=== PATIENT | female | born 1945 | race Caucasian/White ===

== ENCOUNTER 2016-10-05 10:09 | Emergency (ER) | payer MEDICARE, OTHER ==
[~2016-10-05] VITALS: Ht 157.5 cm; Wt 78.1 kg
[~2016-10-05 10:09] MED LIST: ADV25050 INH; ALBU8.5H3 INH; BENA20TA65 PO; HYD25 PO; LEVO500T10 PO; PRED20 PO
[2016-10-05 10:11] VITALS: Ht 157.5 cm; Wt 78.1 kg
[2016-10-05] MEDS ORDERED: ALBUTEROL 0.5% (NEB) 2.5 MG/0.5 ML AMP HHN STA (11:40)
[2016-10-05] MEDS ORDERED: predniSONE 20 MG TAB PO ONE (12:00)
--- NOTE | 2016-10-05 12:45 | RADRPT ---
PROCEDURE: XR Chest. CLINICAL INDICATION: Shortness of breath TECHNIQUE: AP portable chest COMPARISON: 11/19/2015 FINDINGS: The cardiomediastinal silhouette is within normal limits of size ..The lungs are clear without pleur al effusion or focal consolidation. No pneumothorax. The osseous structures and soft tissues are unr emarkable. IMPRESSION: 1. No evidence for active cardiopulmonary disease. RPTAT:AAJJ Yonatan Zuñiga Physician Date Time Electronically viewed and signed by Yonatan Zuñiga Physician on 10/05/2016 12:45 MATT/
[2016-10-05] MEDS ORDERED: PRED20TA PO (12:57)
[2016-10-05] MEDS ORDERED: HYD25 PO (12:57)
[2016-10-05] MEDS ORDERED: ADV25050 INHALATION (12:57)
[2016-10-05] MEDS ORDERED: BENA20TA48 PO (12:57)
[2016-10-05] MEDS ORDERED: ALBU18HF INHALATION (12:57)
[2016-10-05] MEDS ORDERED: FLUT9.9S NASAL (12:58)
--- NOTE | 2016-10-05 13:02 | ERD ---
ER Documentation Chief Complaint Date/Time DATE: 10/05/16 TIME: 13:01 Chief Complaint FLU X 2 MOS HPI 71-year-old female presents with cough and nasal congestion for last 2 months. She has a history of asthma. She denies fevers. She has no history of present sputum. Denies chest pain, vomiting, abdominal pain. She is requesting refills on her medications for hypertension as well for ROS All systems reviewed and are negative except as per history of present illness. Medications Home Meds Active Scripts Fluticasone Propionate (Flonase Allergy Relief) 9.9 Ml [place].susp, 1 SPRAY NASAL DAILY, #1 BOTTLE TO EACH NOSTRIL Prov:MARLINE PETTY MD 10/05/16 Salmeterol Xinaf/Fluticasone* (Advair*) 250-50 Diskus Inhaler, 1 INH INHALATION BID, #1 INHALER Prov:MARLINE PETTY MD 10/05/16 Albuterol Sulfate* (Ventolin HFA*) 18 Gm Hfa.aer.ad, 2 PUFF INHALATION Q4H, #1 INHALER Prov:MARLINE PETTY MD 10/05/16 Benazepril Hcl* (Benazepril Hcl*) 20 Mg Tablet, 20 MG PO DAILY, #30 TAB Prov:MARLINE PETTY MD 10/05/16 Hydrochlorothiazide* (Hydrochlorothiazide*) 25 Mg Tab, 25 MG PO DAILY, #30 TAB Prov:MARLINE PETTY MD 10/05/16 Prednisone* (Prednisone*) 20 Mg Tab, 40 MG PO DAILY for 4 Days, TAB Start October 06, 2016 Prov:MARLINE PETTY MD 10/05/16 Albuterol Sulfate* (Proair HFA*) 8.5 Gm Hfa.aer.ad, 2 PUFF INH Q4H Y for WHEEZING AND SOB for 30 Days, INHALER 4 Refills Prov:JEN TONY S. 11/21/15 Prednisone (Prednisone) 20 Mg Tab, 60 MG PO DAILY for 2 Days, TAB Prov:JEN TONY S. 11/21/15 Prednisone (Prednisone) 20 Mg Tab, 40 MG PO DAILY for 2 Days, TAB Prov:JEN TONY S. 11/21/15 Prednisone (Prednisone) 20 Mg Tab, 20 MG PO DAILY for 2 Days, TAB Prov:RASTEPHAN FIGUEROAEEP S. 11/21/15 Levofloxacin* (Levofloxacin*) 500 Mg Tablet, 500 MG PO DAILY for 5 Days, TAB Prov:STEPHAN TONYEEP S. 11/21/15 Salmeterol Xinaf/Fluticasone* (Advair*) 1 Inh Inha, 1 INH INH Q12 for 30 Days, 2 Refills Prov:STEPHAN TONYEEP S. 11/21/15 Benazepril Hcl* (Lotensin*) 20 Mg Tab, 20 MG PO DAILY for 30 Days, TAB 3 Refills Prov:STEPHAN TONYEEP S. 11/21/15 Hydrochlorothiazide* (Hydrochlorothiazide*) 25 Mg Tab, 25 MG PO DAILY, #30 TAB 3 Refills Prov:STEPHAN TONYEEP S. 11/21/15 Allergies Allergies: Coded Allergies: No Known Allergy (Unverified , 11/19/15) PMhx/Soc History of Surgery: Yes (pls see EMR) Anesthesia Reaction: No Hx Neurological Disorder: No Hx Respiratory Disorders: Yes (asthma) Hx Cardiac Disorders: Yes (hypertension) Hx Psychiatric Problems: No Hx Miscellaneous Medical Probl: Yes (pls see EMR) Hx Alcohol Use: No Hx Substance Use: No Hx Tobacco Use: No Physical Exam Vitals Vital Signs Date Time Temp Pulse Resp B/P Pulse Ox O2 Delivery O2 Flow Rate FiO2 10/05/16 11:50 85 18 96 21 10/05/16 10:11 98.1 83 18 168/83 99 Physical Exam Const: [] Alert, [id number] per Head: Atraumatic Eyes: Normal Conjunctiva ENT: Normal External Ears, Nose and Mouth. Pupils nasal congestion. TMs normal. Neck: Full range of motion..~ No meningismus. Resp: Clear to auscultation bilaterally. Mild diffuse wheezing without rales or retractions. Cardio: Regular rate and rhythm, no murmurs Abd: Soft, non tender, non distended. Normal bowel sounds Skin: No petechiae or rashes Back: No midline or flank tenderness Ext: No cyanosis, or edema Neur: Awake and alert Psych: Normal Mood and Affect Results 24 hrs Laboratory Tests Test 10/05/16 11:53 Bedside Glucose 128mg/dL Current Medications Medications (Trade) Dose Ordered Sig/Yan Route PRN Reason Start Time Stop Time Status Last Admin Dose Admin Prednisone (Prednisone) 40 mg ONCE ONCE PO 10/05/16 12:00 10/05/16 12:02 DC 10/05/16 11:54 Albuterol (Proventil 0.5% (Neb)) 5 mg ONCE STAT HHN 10/05/16 11:40 10/05/16 11:42 DC 10/05/16 11:49 Procedures/MDM EKG: Rate/Rhythm: [Normal Sinus Rhythm] rate equals 79 QRS, ST, T-waves: [No changes consistent w/ acute ischemia] Impression: [No evidence of ischemia or arrhythmia]. Impression abnormal EKG Chest X-ray 1V Interpreted by me: Soft Tissue: No acute abnormalities Bones: No acute abnormalities Mediastinum/Cardiac Silhouette/Lungs: [No acute abnormalities]. Impression- normal 1 view chest x-ray Patient was given albuterol treatment 1 and prednisone 40 mg by mouth. Accu- Chek is 128. Patient presents with nasal congestion and wheezing intermittently for last 2 months. She may have sinusitis or asthma exacerbation. She will be treated with a short course of prednisone, refills of her benazepril, hydrochlorothiazide, Flonase and will be on Zithromax for possible sinusitis. Patient is advised to follow-up with primary doctor or return to the ER for new or worsening symptoms. The patient was stable with no new complaints during the ER course. Clinically, there is no current evidence to suggest meningitis, sepsis, acute abdomen, pneumonia, acute coronary syndrome , pulmonary embolism, or any other emergent condition appearing to require further evaluation or hospitalization. The patient should certainly return for any new or worsening symptoms per the aftercare instructions. They should otherwise follow-up with her primary care doctor for reevaluation this week. Departure Diagnosis: Primary Impression: Hypertension Hypertension type: unspecified secondary hypertension Qualified Code: I15.9 - Secondary hypertension Additional Impressions: Acute asthma exacerbation Asthma severity: unspecified severity Qualified Code: J45.901 - Asthma with acute exacerbation, unspecified asthma severity Upper respiratory infection URI type: unspecified URI Qualified Code: J06.9 - Upper respiratory tract infection, unspecified type Condition: Stable Patient Instructions: High Blood Pressure (Hypertension), Asthma, Acute (Adult) , Sinusitis, Abx Tx Additional Instructions: Cheque otro vez con [place] doctor primario en el proximo amato or regresa para mas o nueva simptomas. MARLINE PETTY MD Oct 05, 2016 13:02
== END 2016-10-05 13:11 | disposition home or self-care (01) ==
LOC: FTE 10:09
DX: I15.9 Secondary hypertension, unspecified (principal); J45.901 Unspecified asthma with (acute) exacerbation; J06.9 Acute upper respiratory infection, unspecified; I10 Essential (primary) hypertension
CPT/HCPCS: 71010; 82962; 93005; 94664; 99284; J7512